=== PATIENT | female | born 1980 | race Caucasian/White ===

== ENCOUNTER 2016-06-25 13:32 | Emergency (ER) | payer OTHER ==
[~2016-06-25] VITALS: Ht 157.5 cm; Wt 87.4 kg
[2016-06-25 13:35] VITALS: Ht 157.5 cm; Wt 87.4 kg
[2016-06-25 15:20] LABS: URINE BLOOD (Dip) POC 1+ (NEGATIVE)
[2016-06-25 15:26] LABS: ADD SCAN DIFF NO
[2016-06-25 15:27] LABS: EOSINOPHILS # 0.1 10^3/ul (0.0-0.5); EOSINOPHILS % 2.9 % (0.0-7.0); HEMATOCRIT 41.4 % (37.0-47.0); HEMOGLOBIN 13.2 g/dl (12.0-16.0); LYMPHOCYTES # 1.2 10^3/ul (0.8-2.9); LYMPHOCYTES % 25.2 % (15.0-51.0); MEAN CORPUSCULAR HEMOGLOBIN 27.9 pg (29.0-33.0); MEAN CORPUSCULAR HGB CONC 31.9 g/dl (32.0-37.0); MEAN CORPUSCULAR VOLUME 87.5 fl (82.0-101.0); MEAN PLATELET VOLUME 9.4 fl (7.4-10.4); MONOCYTE # 0.5 10^3/ul (0.3-0.9); MONOCYTES % 9.4 % (0.0-11.0); NEUTROPHILS % 62.3 % (39.0-77.0); PLATELET COUNT 185 10^3/UL (140-415); RED BLOOD COUNT 4.73 10^6/ul (4.20-5.40); RED CELL DISTRIBUTION WIDTH 13.6 % (11.5-14.5); WHITE BLOOD COUNT 4.8 10^3/ul (4.8-10.8)
[2016-06-25 15:43] LABS: POTASSIUM 4.7 mmol/L (3.5-5.1)
[2016-06-25 15:45] LABS: CREATININE 0.68 mg/dl (0.44-1.00)
[2016-06-25 15:46] LABS: CALCIUM 8.5 mg/dl (8.4-10.2)
--- NOTE | 2016-06-25 16:31 | RADRPT ---
PROCEDURE: US Abdomen. CLINICAL INDICATION: Right upper quadrant Abdominal pain. TECHNIQUE: Multiple real-time images were acquired of the patient's abdomen and retroperitoneum ut ilizing a high resolution transducer. COMPARISON: None FINDINGS: The liver demonstrates normal echogenicity and size and no focal lesions are seen. The liver measure s 16.9 cm. Multiple gallstones are identified filling the gallbladder. There is no pericholecystic fluid or ga llbladder wall thickening. No intra or extrahepatic biliary dilatation is seen. The common bile augusto t measures 3 mm in maximal dimension. The pancreas is not seen. The right kidney is unremarkable measuring 10.3 cm. No collecting system dilatation, stone or solid mass. IMPRESSION: Cholelithiasis. No findings of acute cholecystitis or biliary dilatation. RPTAT: PP .Ariana Xie MD, Date Time Electronically viewed and signed by .Ariana Xie MD, MD on 06/25/2016 16:30 .F/
[2016-06-25] MEDS ORDERED: DICY10CA60 PO (16:43)
[2016-06-25] MEDS ORDERED: FAMO20TA18 PO (16:43)
[2016-06-25] MEDS ORDERED: DICYCLOMINE 10 MG CAP PO ONE (17:00)
[2016-06-25 17:01] VITALS: BP 119/73; PULSE 71; RESP 20; TEMP 97.8
--- NOTE | 2016-06-26 16:44 | ERD ---
ER Documentation Chief Complaint Date/Time DATE: 06/26/16 TIME: 16:34 Chief Complaint AP X 2 DAYS HPI This is a 35 year old female presenting to the emergency department for abdominal pain and diarrhea 2 days. Patient describes pain as sharp to periumbilical region. Patient states pain feels like cramps. Patient has sharp pain then followed by bursts of diarrhea. Patient states diarrhea started yesterday and she has gone about 15 times since yesterday. No vomiting. Patient has been avoiding eating due to cramping and diarrhea. Patient states she has pain relief after diarrhea. Nonbloody stool. Describes stool as light brown and liquid. No fevers or chills. No new foods or raw meat. Patient also reports having a sour taste in her mouth.Patient took Pepto- Bismol without relief. No chest pain, shortness breath or difficulty breathing. Patient has history of asthma and is using a Ventolin inhaler. ROS All systems reviewed and are negative except as per history of present illness. Medications Home Meds Active Scripts Famotidine* (Famotidine*) 20 Mg Tablet, 20 MG PO QAM, #10 TAB Prov:BRITANY MCGARRY NP 06/25/16 Dicyclomine Hcl* (Bentyl*) 10 Mg Capsule, 10 MG PO QID, #10 CAP Prov:BRITANY MCGARRY NP 06/25/16 Allergies Allergies: Coded Allergies: No Known Allergy (Unverified , 06/25/16) PMhx/Soc Medical and Surgical Hx: pt denies Medical Hx, pt denies Surgical Hx Hx Alcohol Use: No Hx Substance Use: No Smoking Status: Never smoker Physical Exam Vitals Vital Signs Date Time Temp Pulse Resp B/P Pulse Ox O2 Delivery O2 Flow Rate FiO2 06/25/16 17:01 97.8 71 20 119/73 99 06/25/16 13:35 97.8 87 20 127/80 99 Physical Exam Const: No acute distress, alert Head: Atraumatic Eyes: Normal Conjunctiva ENT: Normal External Ears, Nose and Mouth. No erythema or exudate to posterior pharynx. Neck: Full range of motion..~ No meningismus. Resp: Clear to auscultation bilaterally. No wheezing Cardio: Regular rate and rhythm, no murmurs Abd: Soft, non tender, non distended. Normal bowel sounds Skin: No petechiae or rashes Back: No midline or flank tenderness Ext: No cyanosis, or edema Neur: Awake and alert Psych: Normal Mood and Affect Result Diagram: 06/25/16 1520 06/25/16 1520 Results 24 hrs Laboratory Tests Test 06/25/16 15:20 06/25/16 15:23 Anion Gap 15 Basophils # 0.010^3/ul Basophils % 0.0% Blood Urea Nitrogen 9mg/dl Calcium Level 8.5mg/dl Carbon Dioxide Level 27mmol/L Chloride Level 103mmol/L Creatinine 0.68mg/dl Eosinophils # 0.110^3/ul Eosinophils % 2.9% Glucose Level 99mg/dl Hematocrit 41.4% Hemoglobin 13.2g/dl Lymphocytes # 1.210^3/ul Lymphocytes % 25.2% Mean Corpuscular Hemoglobin 27.9pg Mean Corpuscular Hemoglobin Concent 31.9g/dl Mean Corpuscular Volume 87.5fl Mean Platelet Volume 9.4fl Monocytes # 0.510^3/ul Monocytes % 9.4% Neutrophils # 3.010^3/ul Neutrophils % 62.3% Nucleated Red Blood Cells # 0.010^3/ul Nucleated Red Blood Cells % 0.0/100WBC Platelet Count 04029^3/UL Potassium Level 4.7mmol/L Red Blood Count 4.7310^6/ul Red Cell Distribution Width 13.6% Sodium Level 140mmol/L White Blood Count 4.810^3/ul Bedside Urine Blood 1+ Bedside Urine Glucose (UA) Negative Bedside Urine Ketones (LAB) Negative Bedside Urine Leukocyte Esterase (L Trace Bedside Urine Nitrite (LAB) Negative Bedside Urine Protein (LAB) Negative Bedside Urine pH (LAB) 6.0 Current Medications Medications (Trade) Dose Ordered Sig/Daniel Route PRN Reason Start Time Stop Time Status Last Admin Dose Admin Dicyclomine HCl (Bentyl) 10 mg ONCE ONCE PO 06/25/16 17:00 06/25/16 17:00 DC Procedures/MDM ED COURSE: The patient was stable throughout ED course. I kept the patient and/or family informed of laboratory and diagnostic imaging results throughout the ED course. Laboratory CBC unremarkable. No significant anemia or infection BMP no significant elect labile Urine dip trace leukocyte Estrace, 1+ blood Urine culture negative after 24 hours Imaging Gallbladder ultrasound Patient: DARELL HUFFMAN : 1980 Age: 35 Sex: F MR #: [id number] [facility] #: [id number] DOS: 06/25/16 0000 Ordering MD: BRITANY MCGARRY NP Location: [facility] Room/Bed: PROCEDURE: US Abdomen. CLINICAL INDICATION: Right upper quadrant Abdominal pain. TECHNIQUE: Multiple real-time images were acquired of the patient's abdomen and retroperitoneum utilizing a high resolution transducer. COMPARISON: None FINDINGS: The liver demonstrates normal echogenicity and size and no focal lesions are seen. The liver measures 16.9 cm. Multiple gallstones are identified filling the gallbladder. There is no pericholecystic fluid or gallbladder wall thickening. No intra or extrahepatic biliary dilatation is seen. The common bile duct measures 3 mm in maximal dimension. The pancreas is not seen. The right kidney is unremarkable measuring 10.3 cm. No collecting system dilatation, stone or solid mass. IMPRESSION: Cholelithiasis. No findings of acute cholecystitis or biliary dilatation. MDM: This is a 35-year-old female presenting to emergency department for abdominal pain and diarrhea 2 days. No fevers or chills. Vital signs are stable. No tachycardia or hypotension. Labs are unremarkable. No significant infection or anemia. No significant electrolyte imbalance. Gallbladder ultrasound reviewed by radiologist shows cholelithiasis. No findings of acute cholecystitis or biliary dilatation. Urine is negative for infection. Patient appears calm and comfortable throughout ED visit. No active vomiting or diarrhea while in ED. Abdominal pain is periumbilical. No masses or bruits on physical exam. Patient now describes the pain as mild, "dull" and tolerable. Low suspicion for cholecystitis, small bowel obstruction, diverticulitis, appendicitis or AAA. Differential diagnosis includes but not limited to GERD, gastritis, cholelithiasis, diverticulosis, functional dyspepsia, IBS, IBD and abdominal pain not otherwise specified. Patient is appropriate for outpatient management will be given prescription for Pepcid and Bentyl. Instructed patient to follow-up with primary care provider in the next 24-48 hours for reassessment. Return to ED for any high fever, chest pain, difficulty breathing, shortness breath, wheezing, vomiting, diarrhea , abdominal pain or any new or worsening symptoms. Patient verbalizes understanding. All questions answered at discharge. Departure Diagnosis: Primary Impression: Abdominal cramps Condition: Stable Patient Instructions: Abdominal Pain Referrals: IRENE BURNETTE (PCP) Additional Instructions: Llame al doctor MAANA y juan babita JONG PARA DENTRO DE 2-3 TIPTON.Dgale a la secretaria que nosotros le instruimos hacer esta jong.Avise o llame si tapia condicin se empeora antes de la jong. Regresa aqui si peor o no mejor. Return to ED for any high fever, chest pain, difficulty breathing, shortness breath, wheezing, vomiting, diarrhea, abdominal pain or any new or worsening symptoms. BRITANY MCGARRY NP Jun 26, 2016 16:44
== END 2016-06-25 17:02 | disposition home or self-care (01) ==
LOC: FTE 13:32
DX: R10.33 Periumbilical pain (principal)
CPT/HCPCS: 36415; 76705; 80048; 81003; 85025; 87086; Z7502